=== PATIENT | male | born 1975 | race Caucasian/White ===

== ENCOUNTER 2017-02-22 11:56 | Emergency (ER) | payer SELFPAY ==
[~2017-02-22] VITALS: Ht 185.4 cm; Wt 83.9 kg
[~2017-02-22 11:56] MED LIST: DEPAKOTE ER PO; NO MEDICATIONS; TYLENOL #3 PO
[2017-02-22] MEDS ORDERED: DEPAKOTE (12:07)
[2017-02-22] MEDS ORDERED: VOLTAREN50 MG (12:08)
== END 2017-02-22 12:14 | disposition left against medical advice (07) ==
LOC: SED 11:56
DX: Z53.21 Procedure and treatment not carried out due to patient leaving prior to being seen by health care provider (principal)